=== PATIENT | female | born 1990 | race Caucasian/White ===

== ENCOUNTER 2018-05-22 08:31 | Outpatient (CLI) | payer OTHER ==
[~2018-05-22 08:31] MED LIST: Motrin PO; Natalcare Rx,Pramile PO; Percocet 5/325,Endoc PO
[2018-05-22 08:53] VITALS: BP 115/64
== END 2018-05-22 11:48 | disposition home or self-care (01) ==
LOC: LDRP-OP 08:31 → 2WEST 08:32 → LDRP-OP 07-22 16:25
DX: Z03.79 Encounter for other suspected maternal and fetal conditions ruled out (principal); W22.8XXA Striking against or struck by other objects, initial encounter; Z3A.35 35 weeks gestation of pregnancy
CPT/HCPCS: 59025; G0378